=== PATIENT | female | born 1995 | race Caucasian/White ===

== ENCOUNTER 2018-07-05 16:09 | Emergency (ER) | payer MEDICAID ==
[~2018-07-05] VITALS: Ht 157.5 cm; Wt 45.4 kg
--- NOTE | 2018-07-05 16:37 | NUR ---
PT IS IN ROOM #2A. DR CHAVES EVALUATED THE PT. PT IS UNDER DIRECT OBSERVATION OF HEALTH EVALUATOR SYDNEE.
[2018-07-05 17:04] LABS: BASOPHILS # (AUTO) 0.1 K/uL (0.0-8.0); EOSINOPHILS % (AUTO) 0.3 % (0.0-7.0); HEMATOCRIT 43.4 % (31.2-41.9); HEMOGLOBIN 14.7 g/dL (10.9-14.3); LYMPHOCYTES # (AUTO) 1.8 K/uL (20.0-40.0); LYMPHOCYTES % (AUTO) 28.1 % (20.5-51.5); MEAN CORPUSCULAR HEMOGLOBIN 31.5 uug (24.7-32.8); MEAN CORPUSCULAR HGB CONC 34 g/dL (32.3-35.6); MEAN CORPUSCULAR VOLUME 92.8 fL (75.5-95.3); MONOCYTES # (AUTO) 0.5 K/uL (2.0-10.0); MONOCYTES % (AUTO) 8.4 % (0.0-11.0); NEUTROPHILS # (AUTO) 3.9 K/uL (1.8-8.9); NEUTROPHILS % (AUTO) 62.2 % (38.5-71.5); PLATELET COUNT (AUTO) 246 K/uL (179-408); RED BLOOD CELL COUNT(AUTO) 4.68 MIL/uL (3.63-4.92); WHITE BLOOD COUNT (AUTO) 6.2 K/uL (3.8-11.8)
[2018-07-05 17:09] LABS: CARBON DIOXIDE 28 mmol/L (21-32); CHLORIDE 105 mmol/L (98-107); CREATININE 0.8 mg/dL (0.6-1.3); GLUCOSE 93 mg/dL (74-106); POTASSIUM 3.9 mmol/L (3.5-5.1); UREA NITROGEN, BLOOD 7 mg/dL (7-18)
[2018-07-05 17:14] LABS: ALANINE AMINOTRANSFERASE 15 U/L (14-59); ALKALINE PHOSPHATASE 64 U/L (50-136); ASPARTATE AMINOTRANSFERASE 15 U/L (15-37); BILIRUBIN,DIRECT 0.1 mg/dL (0.0-0.2); BILIRUBIN,TOTAL 0.6 mg/dL (0.2-1.0); TOTAL PROTEIN, SERUM 7.6 g/dL (6.4-8.2)
[2018-07-05 17:15] LABS: ETHANOL < 3 MG/DL (0-0)
--- NOTE | 2018-07-05 17:30 | NUR ---
RENEE CARR CALLED FOR PSYCH EVAL PER MD REQUEST, ETA 1 HOUR.
--- NOTE | 2018-07-05 18:45 | NUR ---
PT WAS EVALUATED BY CRISIS CORK MOLDER RENEE. D/C INSTRUCTIONS WERE GIVEN TO THE PT BY CRISIS CORK MOLDER RENEE. NO S/S OF DISTRESS TA THIS TIME. PT DENIES SUICIDAL IDIATION.
[2018-07-05] MEDS ORDERED: LORAZEPAM 0.5 MG TABLET PO ONE (19:00)
[2018-07-05] MEDS ORDERED: LORAZEPAM 1 MG TABLET ONE (19:11)
--- NOTE | 2018-07-05 19:16 | NUR ---
PT WAS D/C'd TO HOME. D/C INSTRUCTIONS GIVEN TO THE PT.
[2018-07-05 19:21] VITALS: BP 125/63
== END 2018-07-05 19:22 | disposition home or self-care (01) ==
LOC: ER 16:11
DX: F32.9 Major depressive disorder, single episode, unspecified (principal); F41.9 Anxiety disorder, unspecified
CPT/HCPCS: 36415; 80048; 80076; 84702; 85025; 99284; G0480; A4663

== ENCOUNTER 2018-08-20 12:04 | Emergency (ER) | payer MEDICAID ==
[~2018-08-20] VITALS: Ht 160 cm; Wt 45.4 kg
--- NOTE | 2018-08-20 12:30 | NUR ---
CEFERINO BRITO AT BEDSIDE FOR MSE.
--- NOTE | 2018-08-20 12:53 | NUR ---
Patient discharged to home in stable conditon. Written and verbal after care instructions given. Patient verbalizes understanding of instructions. PT D/C W/ PRESCRIPTIONS. ALL BELONGINGS W/ PT. PT SELF-AMBULATED W/O DIFFICULTY.
[2018-08-20 12:54] VITALS: BP 121/70
== END 2018-08-20 12:55 | disposition home or self-care (01) ==
LOC: ER 12:04
DX: M26.602 Left temporomandibular joint disorder, unspecified (principal)
CPT/HCPCS: A4663

== ENCOUNTER 2018-10-05 19:23 | Emergency (ER) | payer MEDICAID ==
[~2018-10-05] VITALS: Ht 157.5 cm; Wt 54.4 kg
--- NOTE | 2018-10-05 20:20 | NUR ---
Dr. Bonilla at bedside for MSE.
[2018-10-05 20:34] LABS: BASOPHILS # (AUTO) 0.1 K/uL (0.0-8.0); BASOPHILS % (AUTO) 1.2 % (0.0-2.0); EOSINOPHILS # (AUTO) 0.1 K/uL (0.0-0.7); EOSINOPHILS % (AUTO) 0.9 % (0.0-7.0); HEMOGLOBIN 14.7 g/dL (10.9-14.3); LYMPHOCYTES % (AUTO) 22.3 % (20.5-51.5); MEAN CORPUSCULAR HEMOGLOBIN 31.3 uug (24.7-32.8); MEAN CORPUSCULAR HGB CONC 33 g/dL (32.3-35.6); MEAN CORPUSCULAR VOLUME 93.8 fL (75.5-95.3); MONOCYTES # (AUTO) 0.7 K/uL (2.0-10.0); MONOCYTES % (AUTO) 7.7 % (0.0-11.0); NEUTROPHILS % (AUTO) 67.9 % (38.5-71.5); PLATELET COUNT (AUTO) 229 K/uL (179-408); RED BLOOD CELL COUNT(AUTO) 4.69 MIL/uL (3.63-4.92); WHITE BLOOD COUNT (AUTO) 8.8 K/uL (3.8-11.8)
--- NOTE | 2018-10-05 20:34 | NUR ---
Pt provided urine sample, sent to lab.
[2018-10-05 20:38] LABS: CREATININE 0.8 mg/dL (0.6-1.3); POTASSIUM 3.3 mmol/L (3.5-5.1)
[2018-10-05 21:10] LABS: *BILIRUBIN,URIN NEGATIVE (NEGATIVE); *BLOOD, URINE 2+ (NEGATIVE); *CLARITY,URINE SLIGHTLY CLOUDY (CLEAR); *COLOR,URINE YELLOW (YELLOW); *KETONES,URINE NEGATIVE (NEGATIVE); *UROBILINOGEN,URINE 0.2 E.U./dl (NORMAL); LEUKOCYTE ESTERASE ,URINE NEGATIVE (NEGATIVE); NITRITE, URINE NEGATIVE (NEGATIVE); UGLUCOSE NEGATIVE (NEGATIVE)
--- NOTE | 2018-10-05 21:11 | NUR ---
Ultrasound at bedside.
[2018-10-05 21:14] LABS: *URINE HCG, QUAL NEGATIVE (NEGATIVE)
[2018-10-05 21:16] LABS: BACTERIA,URINE FEW /HPF (NONE SEEN); SQUAMOUS EPITHELIAL CELL,UR FEW /HPF (NONE SEEN); WBC,URINE 0-3 /HPF (0-3)
[2018-10-05 21:17] LABS: URINE AMORPHOUS URATE FEW /HPF
--- NOTE | 2018-10-05 21:51 | NUR ---
Patient discharged to home in stable conditon. Written and verbal after care instructions given. Patient verbalizes understanding of instructions. Pt ambulated out of ER with steady gait, no acute signs of distress, VSS, all belongings taken.
[2018-10-05 21:52] VITALS: BP 110/70
== END 2018-10-05 21:53 | disposition home or self-care (01) ==
LOC: ER 19:23
DX: N92.1 Excessive and frequent menstruation with irregular cycle (principal); F12.10 Cannabis abuse, uncomplicated; F17.200 Nicotine dependence, unspecified, uncomplicated
CPT/HCPCS: 36415; 76856; 84703; 85025; A4663

== ENCOUNTER 2018-10-11 19:11 | Emergency (ER) | payer MEDICAID ==
[~2018-10-11] VITALS: Ht 157.5 cm; Wt 45.4 kg
--- NOTE | 2018-10-11 19:20 | NUR ---
Patient ambulated with stable gait. Speech is clear, speaks in complete sentences. No neuro deficits. A/Ox4. Patient came in for c/o laceration injury to LFA from broken glass. Denies any SI. Respiratory even and unlabored, no cough no sob. Active bleeding noted, pressure applied. Patient in bed at lowest position, sr upx2, call light within reach. Fall precautions implemented per protocol.
--- NOTE | 2018-10-11 19:22 | NUR ---
ERMD at bedside for eval and suture of laceration.
--- NOTE | 2018-10-11 20:07 | NUR ---
Upon discharge. Patient verbalized thoughts of suicide. Initially patient was hesitant to state the real story behind the laceration injury. Per her friends, they stated that she has a hx of hurting herself, and has a hx of being placed on 5150 prior.
--- NOTE | 2018-10-11 20:10 | NUR ---
Clothes removed, placed patient in gown, belongings placed in bag. Suicide precautions implemented.
--- NOTE | 2018-10-11 20:14 | NUR ---
Per nursing spvsr, no available sitters. Call placed to security, and security is at bedside.
[2018-10-11 20:17] LABS: BASOPHILS # (AUTO) 0.1 K/uL (0.0-8.0); BASOPHILS % (AUTO) 0.9 % (0.0-2.0); EOSINOPHILS % (AUTO) 0.3 % (0.0-7.0); HEMATOCRIT 43.7 % (31.2-41.9); HEMOGLOBIN 14.8 g/dL (10.9-14.3); LYMPHOCYTES # (AUTO) 1.6 K/uL (20.0-40.0); MEAN CORPUSCULAR HEMOGLOBIN 31.5 uug (24.7-32.8); MEAN CORPUSCULAR HGB CONC 34 g/dL (32.3-35.6); MONOCYTES # (AUTO) 0.3 K/uL (2.0-10.0); MONOCYTES % (AUTO) 4.6 % (0.0-11.0); NEUTROPHILS % (AUTO) 67.2 % (38.5-71.5); PLATELET COUNT (AUTO) 247 K/uL (179-408)
[2018-10-11 20:25] LABS: CARBON DIOXIDE 28 mmol/L (21-32); CHLORIDE 106 mmol/L (98-107); CREATININE 0.8 mg/dL (0.6-1.3); GLUCOSE 96 mg/dL (74-106); POTASSIUM 3.2 mmol/L (3.5-5.1); UREA NITROGEN, BLOOD 5 mg/dL (7-18)
--- NOTE | 2018-10-11 20:25 | NUR ---
LILLY Salazar has been contacted and stated she will be here in about an hour.
[2018-10-11 20:30] LABS: ALANINE AMINOTRANSFERASE 21 U/L (14-59); ALKALINE PHOSPHATASE 67 U/L (50-136); ASPARTATE AMINOTRANSFERASE 16 U/L (15-37); BILIRUBIN,DIRECT 0.2 mg/dL (0.0-0.2); BILIRUBIN,TOTAL 0.7 mg/dL (0.2-1.0); ETHANOL 174 MG/DL (0-0); TOTAL PROTEIN, SERUM 7.8 g/dL (6.4-8.2)
[2018-10-11 20:43] LABS: ACETAMINOPHEN < 2.0 ug/mL (10-30)
--- NOTE | 2018-10-11 21:11 | NUR ---
Marie at bedside for crisis evaluation.
--- NOTE | 2018-10-11 21:30 | NUR ---
After evaluation, Marie deemed patient did not meet criteria. AGUSTINA notified. Patient will be discharged home and sent home with referrals. Per Marie, boyfriend has to come and pick her up.
[2018-10-11] MEDS ORDERED: IBUPROFEN 600 MG TABLET ONE (21:53)
[2018-10-11] MEDS ORDERED: IBUPROFEN 600 MG TABLET PO ONE (22:00)
[2018-10-11 22:25] VITALS: BP 135/87
--- NOTE | 2018-10-11 22:25 | NUR ---
Patient discharged to home in stable conditon. Written and verbal after care instructions given. Patient verbalizes understanding of instructions. Boyfriend came to pick her up. Ambulated with stable gait.
== END 2018-10-11 22:25 | disposition home or self-care (01) ==
LOC: ER 19:11
DX: S51.812A Laceration without foreign body of left forearm, initial encounter (principal); F32.9 Major depressive disorder, single episode, unspecified; F17.200 Nicotine dependence, unspecified, uncomplicated; F12.10 Cannabis abuse, uncomplicated; F41.9 Anxiety disorder, unspecified; X83.8XXA Intentional self-harm by other specified means, initial encounter; Y93.89 Activity, other specified; Y92.89 Other specified places as the place of occurrence of the external cause; Y99.8 Other external cause status
CPT/HCPCS: 12002; 36415; 71045; 80048; 80076; 84702; 85025; 93005; 99284; G0480 ×2; G0481; A4663

== ENCOUNTER 2018-10-13 13:44 | Emergency (ER) | payer MEDICAID ==
[~2018-10-13] VITALS: Ht 157.5 cm; Wt 45.4 kg
[2018-10-13] MEDS ORDERED: NEOMY/BACITRA/POLYMYXIN B OINT UD PACKET TP ONE ×2 (14:00→14:02)
[2018-10-13] MEDS ORDERED: TDAP DIPH,PERTUSS,TET VAC/PF 0.5 ML DISP.SYRIN IM ONE ×2 (14:00→14:06)
--- NOTE | 2018-10-13 14:00 | NUR ---
PATIENT WAS MSE BY DR SERVIN IN ROOM 02B. PATIENT A & O X3.
--- NOTE | 2018-10-13 14:12 | NUR ---
Patient discharged to home in stable conditon. Written and verbal after care instructions given. Patient verbalizes understanding of instructions.
[2018-10-13 14:14] VITALS: BP 114/72
== END 2018-10-13 14:16 | disposition home or self-care (01) ==
LOC: ER 13:44
DX: S51.812D Laceration without foreign body of left forearm, subsequent encounter (principal); F17.200 Nicotine dependence, unspecified, uncomplicated; F12.10 Cannabis abuse, uncomplicated; X58.XXXD Exposure to other specified factors, subsequent encounter
CPT/HCPCS: 90715; A4663

== ENCOUNTER 2018-10-22 11:54 | Emergency (ER) | payer MEDICAID ==
[~2018-10-22] VITALS: Ht 157.5 cm; Wt 45.4 kg
--- NOTE | 2018-10-22 12:04 | NUR ---
Sutures from LT FA removed by , Pt tolorated well.
[2018-10-22 12:06] VITALS: BP 117/74
== END 2018-10-22 12:07 | disposition home or self-care (01) ==
LOC: ER 11:54
DX: S51.812D Laceration without foreign body of left forearm, subsequent encounter (principal); F17.200 Nicotine dependence, unspecified, uncomplicated; F12.10 Cannabis abuse, uncomplicated; X58.XXXD Exposure to other specified factors, subsequent encounter
CPT/HCPCS: A4663

== ENCOUNTER 2019-02-21 18:03 | Emergency (ER) | payer MEDICAID ==
[~2019-02-21] VITALS: Ht 157.5 cm; Wt 45.4 kg
[2019-02-21] MEDS ORDERED: ESCI10TA PO (18:20)
--- NOTE | 2019-02-21 18:35 | NUR ---
at bedside to see and examine patient.
[2019-02-21] MEDS ORDERED: IBUPROFEN 400 MG TABLET PO ONE (18:45)
[2019-02-21] MEDS ORDERED: IBUPROFEN 400 MG TABLET ONE (18:46)
--- NOTE | 2019-02-21 18:53 | NUR ---
Chela sanchez applied by rn. Wheeler.
--- NOTE | 2019-02-21 18:53 | NUR ---
DCD instructions provided to patient, who verbalized understanding. left unit AAOX4.
--- NOTE | 2019-02-21 19:04 | NUR ---
report given to incoming rn. Dalton. patient awaiting Dr. sorto discussed X-ray results.
--- NOTE | 2019-02-21 19:06 | NUR ---
patient decided to leave without talking to md.
== END 2019-02-21 19:08 | disposition home or self-care (01) ==
LOC: ER 18:03
DX: S50.11XA Contusion of right forearm, initial encounter (principal); S63.501A Unspecified sprain of right wrist, initial encounter; F41.9 Anxiety disorder, unspecified; F32.9 Major depressive disorder, single episode, unspecified; F17.200 Nicotine dependence, unspecified, uncomplicated; F12.10 Cannabis abuse, uncomplicated; Z79.899 Other long term (current) drug therapy; W19.XXXA Unspecified fall, initial encounter; Y93.89 Activity, other specified; Y92.89 Other specified places as the place of occurrence of the external cause; Y99.8 Other external cause status
CPT/HCPCS: 73110; A4663

== ENCOUNTER 2019-05-09 23:43 | Emergency (ER) | END 2019-05-10 02:13 | disposition home or self-care (01) | DX: S51.812A Laceration without foreign body of left forearm, initial encounter (principal); F41.9 Anxiety disorder, unspecified; F32.9 Major depressive disorder, single episode, unspecified; F17.200 Nicotine dependence, unspecified, uncomplicated; F12.10 Cannabis abuse, uncomplicated; Z79.899 Other long term (current) drug therapy; X78.9XXA Intentional self-harm by unspecified sharp object, initial encounter; Y93.89 Activity, other specified; Y92.89 Other specified places as the place of occurrence of the external cause; Y99.8 Other external cause status | CPT/HCPCS: 12002; 36415; 80048; 80076; 80307; 81000; 81001; 84703; 85025; 99284; G0480 ×2; G0481; J3490 ==

== ENCOUNTER 2019-05-24 15:06 | Emergency (ER) | payer MEDICAID ==
[~2019-05-24] VITALS: Ht 157.5 cm; Wt 45.4 kg
[~2019-05-24 15:06] MED LIST: ESCI10TA PO
[2019-05-24 15:30] VITALS: BP 111/75
--- NOTE | 2019-05-24 15:30 | NUR ---
Patient discharged to home in stable conditon. Written and verbal after care instructions given. Patient verbalizes understanding of instructions.
[2019-07-10] MEDS ORDERED: BIRTH CONTROL (00:28)
== END 2019-05-24 15:31 | disposition home or self-care (01) ==
LOC: ER 15:06
DX: S50.852A Superficial foreign body of left forearm, initial encounter (principal); F41.9 Anxiety disorder, unspecified; F32.9 Major depressive disorder, single episode, unspecified; F17.200 Nicotine dependence, unspecified, uncomplicated; F12.10 Cannabis abuse, uncomplicated; Z79.899 Other long term (current) drug therapy; X58.XXXA Exposure to other specified factors, initial encounter; Y93.89 Activity, other specified; Y92.89 Other specified places as the place of occurrence of the external cause; Y99.8 Other external cause status
CPT/HCPCS: A4663

== ENCOUNTER 2019-07-10 00:19 | Emergency (ER) | payer MEDICAID ==
[~2019-07-10] VITALS: Ht 157.5 cm; Wt 45.4 kg
--- NOTE | 2019-07-10 00:35 | NUR ---
Patient presents to ER with c/o of having restlessness in her Rt arm. Per patient states it has been happening every week for a month. Patient states she experiences this mostly in her legs. Patient alert and oriented x 4. No acute distress. Seen and examined by .
[2019-07-10] MEDS ORDERED: PRAMIPEXOLE 0.25 MG TABLET ONE (00:54)
[2019-07-10] MEDS: PRAMIPEXOLE 0.25 MG TABLET PO SCH ×4 (00:58→01:05)
--- NOTE | 2019-07-10 00:58 | NUR ---
Pt given Mirapex 0.5mg PO x 1 dose only as ordered by
--- NOTE | 2019-07-10 01:05 | NUR ---
Patient discharged to home in stable conditon. DC instructions and prescriptions given and reviewed with patient. Verbalized understanding. Left ER in stable condition.
[2019-07-10 01:08] VITALS: BP 138/88
== END 2019-07-10 01:05 | disposition home or self-care (01) ==
LOC: ER 00:24
DX: G25.81 Restless legs syndrome (principal); F41.9 Anxiety disorder, unspecified; F32.9 Major depressive disorder, single episode, unspecified; F17.200 Nicotine dependence, unspecified, uncomplicated; Z79.899 Other long term (current) drug therapy
CPT/HCPCS: A4663

== ENCOUNTER 2019-08-31 21:08 | Emergency (ER) | payer MEDICAID ==
[~2019-08-31] VITALS: Ht 157.5 cm; Wt 45.4 kg
--- NOTE | 2019-08-31 21:20 | NUR ---
Patient walked into ER with c/o lip swelling and blisters under her lip 45 min PILLAR MAN. Patient denies any shortness of breath or difficulty breathing at this time. Patient is able to speak in full sentences. Patient is afebrile at this time. Dr. Gray at bedside for MSE.
--- NOTE | 2019-08-31 21:30 | NUR ---
Patient discharged to home in stable condition. Written and verbal after care instructions given. Patient verbalizes understanding of instructions. Stressed follow up or return to ER for worsening s/s. Patient left with stable gait.
[2019-08-31 21:31] VITALS: BP 120/85
== END 2019-08-31 21:31 | disposition home or self-care (01) ==
LOC: ER 21:11
DX: B00.1 Herpesviral vesicular dermatitis (principal); F32.9 Major depressive disorder, single episode, unspecified; Z79.899 Other long term (current) drug therapy; F41.9 Anxiety disorder, unspecified
CPT/HCPCS: A4663

== ENCOUNTER 2020-03-25 23:26 | Emergency (ER) | payer MEDICAID ==
[~2020-03-25] VITALS: Ht 157.5 cm; Wt 45.4 kg
[~2020-03-25 23:26] MED LIST changes: +BIRTH CONTROL
[2020-03-25] MEDS ORDERED: LAMO100T2 PO (23:43)
--- NOTE | 2020-03-25 23:48 | NUR ---
at bedside for assessment
[2020-03-26] MEDS ORDERED: LIDOCAINE 1%-EPI 1:100,000 20 ML VIAL IJ ONE
--- NOTE | 2020-03-26 00:22 | NUR ---
Left below the breast laceration noted, area irrigated with normal saline, MD placed 4 sutures and derma burnette to laceration, area left open to air, tolerated procedure well
--- NOTE | 2020-03-26 00:32 | NUR ---
Patient discharged to home in stable condition. Able to ambulate with steady gait, took all belongings, no signs of acute distress. Written and verbal after care instructions given. Patient verbalizes understanding of instructions. Stressed follow up or return to ER for worsening s/s.
[2020-03-26 00:34] VITALS: BP 123/74
== END 2020-03-26 00:30 | disposition home or self-care (01) ==
LOC: ER 23:27
DX: S21.112A Laceration without foreign body of left front wall of thorax without penetration into thoracic cavity, initial encounter (principal); X99.1XXA Assault by knife, initial encounter; Y92.89 Other specified places as the place of occurrence of the external cause; F32.9 Major depressive disorder, single episode, unspecified; Z79.899 Other long term (current) drug therapy
CPT/HCPCS: 12002; 99282; J3490; A4217; A4663

== ENCOUNTER 2020-05-14 10:54 | Emergency (ER) | payer MEDICAID ==
[~2020-05-14] VITALS: Ht 157.5 cm; Wt 45.4 kg
[~2020-05-14 10:54] MED LIST changes: -BIRTH CONTROL; +LAMO100T2 PO
--- NOTE | 2020-05-14 11:35 | NUR ---
PATIENT WAS MSE BY DR CHAVES.
[2020-05-14 11:45] VITALS: BP 117/78
--- NOTE | 2020-05-14 11:45 | NUR ---
Patient discharged to home in stable condition. Written and verbal after care instructions given. Patient verbalizes understanding of instructions. Stressed follow up or return to ER for worsening s/s.
== END 2020-05-14 11:48 | disposition home or self-care (01) ==
LOC: ER 10:54
DX: H66.91 Otitis media, unspecified, right ear (principal)
CPT/HCPCS: A4663

== ENCOUNTER 2020-09-08 21:23 | Emergency (ER) | payer MEDICAID ==
[~2020-09-08] VITALS: Ht 157.5 cm; Wt 45.4 kg
--- NOTE | 2020-09-08 21:38 | NUR ---
Dr. Price at bedside for MSE.
--- NOTE | 2020-09-08 21:46 | NUR ---
Xray at bedside.
[2020-09-08] MEDS ORDERED: LIDOCAINE HCL 2% 20 ML VIAL TP ONE (22:00)
[2020-09-08] MEDS ORDERED: ONDANSETRON ODT 4 MG TAB.RAPDIS ONE (22:13)
[2020-09-08] MEDS ORDERED: CEPH250C PO (22:21)
--- NOTE | 2020-09-08 22:27 | NUR ---
Patient discharged to home in stable condition. Written and verbal after care instructions given. Patient verbalizes understanding of instructions. Stressed follow up or return to ER for worsening s/s. Patient out of ER with steady gait, no acute signs of distress, VSS, all belongings taken.
[2020-09-08 22:29] VITALS: BP 140/78
[2020-09-08] MEDS ORDERED: ONDANSETRON ODT 4 MG TAB.RAPDIS SL ONE (22:30)
== END 2020-09-08 22:30 | disposition home or self-care (01) ==
LOC: ER 21:30
DX: S60.351A Superficial foreign body of right thumb, initial encounter (principal); W45.8XXA Other foreign body or object entering through skin, initial encounter; Y92.512 Supermarket, store or market as the place of occurrence of the external cause; Y99.8 Other external cause status; F32.9 Major depressive disorder, single episode, unspecified; Z79.899 Other long term (current) drug therapy
CPT/HCPCS: 73140; A4663; Q0162

== ENCOUNTER 2022-01-04 13:35 | Emergency (ER) | payer MEDICAID ==
[~2022-01-04] VITALS: Ht 157.5 cm; Wt 45.4 kg
[~2022-01-04 13:35] MED LIST changes: +CEPH250C PO
[2022-01-04] MEDS ORDERED: CEphaleXIN 500 MG CAPSULE PO ONE (14:30)
[2022-01-04] MEDS ORDERED: CEPH500C2 PO (15:35)
--- NOTE | 2022-01-04 15:50 | NUR ---
MD gave pt d/c instructions, pt verbalized understanding.
--- NOTE | 2022-01-04 15:53 | NUR ---
Pt left before RN could give med.
--- NOTE | 2022-01-04 15:57 | NUR ---
Social Work consult was requested for a patient in the emergency room for mental health resources. Patient is a 26-year-old female. Patient appears alert and oriented X4. Patient presents with anxious mood and congruent affect. Patient states that she is currently living at [address] [place] [address] in a house with her significant other, Shailesh Bowman ([phone]). Patient also states that her mother, Heather ([phone]) is a insurance salesperson, and she lives in [place]. Patient states she is currently unemployed. Patient denies a history of substance abuse. There is no current toxicology report. Patient denies a history of psychiatric diagnosis. Patient denies suicidal or homicidal ideation. Patient states she cut her wrist this morning because she had an argument with her significant other. SW provided emotional support, validation and spoke about healthy coping strategies that she can use. Patient states she enjoys watching Netflix when she is anxious. KAREN provided the patient with mental health resources for [facility] [address] [facility]. [facility] [address], [place], [address] , [facility] [address] [facility], [id number] , and [facility] [address] [facility], [address] . also provided the resource for [facility] [address] [place] [address] ([phone]). Patient appeared appreciative of the resources. Patient states she currently has a psychiatrist. Patient states she does not currently have a therapist but is open to getting one after discharge. Patient states her discharge plan is to drive herself home to [address] [place] [address].
== END 2022-01-04 16:02 | disposition home or self-care (01) ==
LOC: ER 13:35
DX: S51.812A Laceration without foreign body of left forearm, initial encounter (principal); X78.9XXA Intentional self-harm by unspecified sharp object, initial encounter; Y92.89 Other specified places as the place of occurrence of the external cause; R45.88 Nonsuicidal self-harm; F32.A Depression, unspecified; Z79.899 Other long term (current) drug therapy; F43.9 Reaction to severe stress, unspecified
CPT/HCPCS: A4663